=== PATIENT | female | born 1970 | race African-American/Black ===

== ENCOUNTER 2020-01-17 11:11 | Day surgery (SDC) | payer MEDICAID ==
[~2020-01-17] VITALS: Ht 172.7 cm; Wt 130.1 kg
[~2020-01-17 11:11] MED LIST: DIAZ10TA4 PO; HYDR-4353 PO; METO50TA17 PO
[2020-01-17] MEDS ORDERED: normal saline 1000ml 1,000 ML IV SCH (11:25)
[2020-01-17 11:33] VITALS: BP 160/88
[2020-01-17] MEDS ORDERED: GABA600T13 PO (11:47)
[2020-01-17] MEDS ORDERED: ANAS1TAB10 PO (11:47)
[2020-01-17] MEDS ORDERED: FLUO10CA28 PO (11:47)
[2020-01-17] MEDS ORDERED: OXYC-150 PO (11:47)
[2020-01-17] MEDS ORDERED: DULO60CA45 PO (11:47)
[2020-01-17] MEDS ORDERED: LIDOcaine 1%/PF 5ML 10 MG/ML VIAL ONE (12:27)
[2020-01-17 13:00] VITALS: BP 172/91
== END 2020-01-17 13:15 | disposition home or self-care (01) ==
LOC: SSTAY O 11:11
PROVIDERS: ATTEND Radiology Diagnostic Radiology
DX: Z45.2 Encounter for adjustment and management of vascular access device (principal); Z85.3 Personal history of malignant neoplasm of breast; Z88.8 Allergy status to other drugs, medicaments and biological substances; Z88.2 Allergy status to sulfonamides; Z79.899 Other long term (current) drug therapy; Z83.3 Family history of diabetes mellitus; Z80.8 Family history of malignant neoplasm of other organs or systems
CPT/HCPCS: 36590

== ENCOUNTER 2020-08-13 05:59 | Day surgery (SDC) | payer MEDICAID ==
[2020-08-03 16:01] LABS: BASOPHILS # (AUTO) 0.1 X10'3 (0-0.2); BASOPHILS % (AUTO) 1.1 % (0-1); EOSINOPHILS # (AUTO) 0.1 X10'3 (0-0.9); EOSINOPHILS % (AUTO) 0.5 % (0-6); LYMPHOCYTES # (AUTO) 4.2 X10'3 (1.1-4.8); LYMPHOCYTES % (AUTO) 34.8 % (21-51); MEAN CORPUSCULAR HEMOGLOBIN 30.3 PG (27.0-31.0); MEAN CORPUSCULAR HGB CONC 33.7 g/dL (33.0-36.5); MEAN PLATELET VOLUME 8.2 FL (7.4-10.4); MONOCYTES # (AUTO) 0.8 X10'3 (0-0.9); MONOCYTES % (AUTO) 6.6 % (2-12); NEUTROPHILS # (AUTO) 6.9 X10'3 (1.8-7.7); PRE OP HEMATOCRIT 39.8 % (35.0-45.0); PRE OP HEMOGLOBIN 13.4 g/dL (12.0-16.0); PRE OP PLATELET COUNT 334 X10'3 (140-440); RED BLOOD COUNT 4.42 X10'6 (4.20-5.60); RED CELL DISTRIBUTION WIDTH 13.7 % (11.5-14.5)
[2020-08-03 16:12] LABS: ALBUMIN 3.6 G/DL (3.4-5.0); ALBUMIN/GLOBULIN RATIO 0.7 (1.1-1.5); ALKALINE PHOSPHATASE 100 IU/L (46-116); BLOOD UREA NITROGEN 21 MG/DL (7-18); BUN/CREATININE RATIO 14.7 (6.6-38.0); CALCIUM 9.6 MG/DL (8.5-10.1); CHLORIDE 98 MMOL/L (99-107); CREATININE 1.43 MG/DL (0.40-0.90); PRE OP ALT 60 U/L (30-65); PRE OP ANION GAP 10 (8-16); PRE OP AST 46 U/L (10-37); PRE OP BILIRUB, TOTAL 0.4 MG/DL (0.0-1.0); PRE OP GLUCOSE 112 MG/DL (70-104); PRE OP SODIUM 138 MMOL/L (135-145); TOTAL PROTEIN 8.6 G/DL (6.4-8.2); eGFR 47 ML/MIN
[2020-08-03 16:13] LABS: PRE OP POTASSIUM 2.7 MMOL/L (3.4-5.1)
[2020-08-13] VITALS (9 sets, daily range): BP systolic 139–201; BP diastolic 73–111
[~2020-08-13] VITALS: Ht 172.7 cm; Wt 128.0 kg
[~2020-08-13 05:59] MED LIST changes: +ANAS5POW2 PO; +ATOR10TA PO; -DIAZ10TA4 PO; +DOCUMENT DATE & TIME OF BETA-BLOCKER PO ONE; +DULO60CA45 PO; +GABA600T13 PO; -HYDR-4353 PO; +HYDR25TA4 PO; +OXYC-150 PO; +PREG75CA75 PO; +ceFAZolin inj. 3,000 MG in normal saline 100ml IV soln 100 ML IV ONE; +famotidine 20mg tablet PO ONE; +ringers solution, lacted 1,000 ML IV SCH
[2020-08-13] MEDS ORDERED: BUPIVAcaine/PF 2.5mg/ml (0.25%) 10ml vial ONE (06:43)
[2020-08-13] MEDS ORDERED: LIDOcaine 0.5% (5mg/ml) 50ml vial ONE (07:30)
[2020-08-13] MEDS ORDERED: fentaNYL/PF 50MCG/1 ML 2ML syringe ONE ×2 (07:33→07:44)
[2020-08-13] MEDS ORDERED: propofol 10mg/ml 20ml vial IV ONE (07:34)
[2020-08-13] MEDS ORDERED: midazolam 2 mg/2 ml injection ONE (07:34)
--- NOTE | 2020-08-13 08:10 | NUR ---
Received from OR via [facility], accompanied by Anesthesiologist CARLIE and report given by Anesthesiolgist, PT ARRIVED AWAKE AND ALERT, NO PAIN NOTED, ON ROOM AIR-100%, LEFT WRIST ELEVATED AND WRAPPED, CDI, FINGERS EXPOSED, GOOD CAP REFILL, PIV TO RIGHT FOOT-WITH LR RUNNING, ALL VS WNL EXCEPT BP NOTED TO BE ELEVATED, ORDER GIVEN FROM MD FOR 5MG HYDRALAZINE IV. WILL ADMINISTER.
[2020-08-13] MEDS ORDERED: hydrALAZINE 20mg/ml inj. IV ONE (08:15)
--- NOTE | 2020-08-13 08:52 | NUR ---
CALLED DR. SEXTON REGARDING DECREASING BP 166/93 AFTER DOSE OF HYDRALAZINE, DR VARGAS TO SEND PT HOME AND TAKE REGULAR HOME BP MEDS
--- NOTE | 2020-08-13 09:30 | NUR ---
PT DISCHARGED TO VEHICLE BY W/C WITHOUT INCIDENT, PIV D/CD, ALL BELONGINGS WITH PT, VALG CDI, PT VERBALIZES UNDERSTANDING OF HOME CARE DID DAUGHTER VIA PHONE, EDUCATED TO USE PAIN MEDS FROM , AND TO START UP HOME MEDS AGAIN TODAY WELL, REMINDED TO USES CPAP WHILE SLEEPING OVER THE NEXT 24 HOURS
== END 2020-08-13 09:30 | disposition home or self-care (01) ==
LOC: PAS 05:59
PROVIDERS: ATTEND Orthopaedic Surgery Hand Surgery
DX: G56.02 Carpal tunnel syndrome, left upper limb (principal); M65.312 Trigger thumb, left thumb; M65.322 Trigger finger, left index finger; Z20.828 Contact with and (suspected) exposure to other viral communicable diseases; G47.33 Obstructive sleep apnea (adult) (pediatric); I11.0 Hypertensive heart disease with heart failure; I50.9 Heart failure, unspecified; F32.9 Major depressive disorder, single episode, unspecified; F41.9 Anxiety disorder, unspecified; M19.90 Unspecified osteoarthritis, unspecified site; E66.9 Obesity, unspecified; Z68.41 Body mass index [BMI] 40.0-44.9, adult; Z86.14 Personal history of Methicillin resistant Staphylococcus aureus infection; F12.90 Cannabis use, unspecified, uncomplicated; Z88.8 Allergy status to other drugs, medicaments and biological substances; Z85.3 Personal history of malignant neoplasm of breast; Z90.710 Acquired absence of both cervix and uterus; Z98.890 Other specified postprocedural states; Z79.899 Other long term (current) drug therapy; Z88.2 Allergy status to sulfonamides
CPT/HCPCS: 26055; 29848; 36415; 80053; 85025; 87635; J0360; J0690; J2001; J2250; J2704; J3010; J3490; A4215; A6449; A7000; J7120

== ENCOUNTER 2020-09-28 05:36 | Day surgery (SDC) | payer MEDICAID ==
[2020-09-21 12:37] LABS: BASOPHILS % (AUTO) 0.8 % (0-1); EOSINOPHILS # (AUTO) 0.1 X10'3 (0-0.9); EOSINOPHILS % (AUTO) 1.5 % (0-6); LYMPHOCYTES # (AUTO) 3.3 X10'3 (1.1-4.8); LYMPHOCYTES % (AUTO) 50.6 % (21-51); MEAN CORPUSCULAR HEMOGLOBIN 29.8 PG (27.0-31.0); MEAN CORPUSCULAR VOLUME 90.4 FL (78-98); MEAN PLATELET VOLUME 6.9 FL (7.4-10.4); MONOCYTES # (AUTO) 0.6 X10'3 (0-0.9); MONOCYTES % (AUTO) 9.3 % (2-12); NEUTROPHILS # (AUTO) 2.5 X10'3 (1.8-7.7); NEUTROPHILS % (AUTO) 37.8 % (42-75); PRE OP HEMATOCRIT 38.5 % (35.0-45.0); PRE OP HEMOGLOBIN 12.7 g/dL (12.0-16.0); PRE OP PLATELET COUNT 315 X10'3 (140-440); RED BLOOD COUNT 4.26 X10'6 (4.20-5.60); RED CELL DISTRIBUTION WIDTH 14.6 % (11.5-14.5)
[2020-09-21 12:50] LABS: ALBUMIN 3.5 G/DL (3.4-5.0); ALBUMIN/GLOBULIN RATIO 0.9 (1.1-1.5); ALKALINE PHOSPHATASE 88 IU/L (46-116); BLOOD UREA NITROGEN 16 MG/DL (7-18); BUN/CREATININE RATIO 15.4 (6.6-38.0); CALCIUM 8.8 MG/DL (8.5-10.1); CHLORIDE 106 MMOL/L (99-107); CREATININE 1.04 MG/DL (0.40-0.90); PRE OP ALT 27 U/L (30-65); PRE OP ANION GAP 6 (8-16); PRE OP AST 21 U/L (10-37); PRE OP BILIRUB, TOTAL 0.2 MG/DL (0.0-1.0); PRE OP GLUCOSE 122 MG/DL (70-104); PRE OP SODIUM 142 MMOL/L (135-145); TOTAL CARBON DIOXIDE 29.8 MMOL/L (24-32); TOTAL PROTEIN 7.5 G/DL (6.4-8.2); eGFR 68 ML/MIN
[2020-09-21 12:55] LABS: PRE OP POTASSIUM 3.3 MMOL/L (3.4-5.1)
[~2020-09-28] VITALS: Ht 172.7 cm; Wt 125.6 kg
[2020-09-28] VITALS (12 sets, daily range): BP systolic 124–164; BP diastolic 73–95
[2020-09-28] MEDS ORDERED: BUPIVAcaine/PF 2.5 mg/ml (0.25%) 30ml vial ONE (06:41)
[2020-09-28] MEDS ORDERED: LIDOcaine 0.5% (5mg/ml) 50ml vial ONE (08:12)
[2020-09-28] MEDS ORDERED: midazolam 2 mg/2 ml injection ONE (08:15)
[2020-09-28] MEDS ORDERED: fentaNYL/PF 50MCG/1 ML 2ML syringe ONE ×2 (08:16→08:55)
--- NOTE | 2020-09-28 09:30 | NUR ---
Received from OR via [facility], accompanied by Anesthesiologist DR SEXTON and report given by Anesthesiologist. PT DROWSY, NO S/S OF DISTRESS/DISCOMFORT, RIGHT HAND W/BIAS DRSG COVERING INCISION/DRSG, FINGERS WD, LEAD CARGO MOVER 1-2 SECONDS. Addendum: 09/28/20 at 0957 by Janna Marinelli RN Amended: Links added.
[2020-09-28] MEDS ORDERED: BUPIVAcaine/PF 2.5 mg/ml (0.25%) 30ml vial IJ ONE (10:04)
--- NOTE | 2020-09-28 11:20 | NUR ---
PT AWAKE AND ABLE TO AMBULATE SAFELY, TOLERATES FLUIDS. DC INSTRUCTIONS GIVEN AND GONE OVER W/PT WHO VERBALIZED UNDERSTANDING, PT D/CD TO HOME VIA W/C TO PRIVATE VEHICLE W/O INCIDENT. Addendum: 09/28/20 at 1138 by Janna Marinelli RN Amended: Links added.
== END 2020-09-28 11:20 | disposition home or self-care (01) ==
LOC: PAS 05:36
PROVIDERS: ATTEND Orthopaedic Surgery Hand Surgery
DX: G56.01 Carpal tunnel syndrome, right upper limb (principal); Z20.822 Contact with and (suspected) exposure to COVID-19; G47.33 Obstructive sleep apnea (adult) (pediatric); I11.0 Hypertensive heart disease with heart failure; I50.9 Heart failure, unspecified; M19.90 Unspecified osteoarthritis, unspecified site; F32.9 Major depressive disorder, single episode, unspecified; E66.9 Obesity, unspecified; Z68.41 Body mass index [BMI] 40.0-44.9, adult; Z79.899 Other long term (current) drug therapy; Z90.710 Acquired absence of both cervix and uterus; Z98.890 Other specified postprocedural states; Z85.3 Personal history of malignant neoplasm of breast; Z88.8 Allergy status to other drugs, medicaments and biological substances; Z86.14 Personal history of Methicillin resistant Staphylococcus aureus infection; Z88.2 Allergy status to sulfonamides
CPT/HCPCS: 29848; 36415; 80053; 82948; 85025; 87635; 93005; J0690; J2001; J2250; J3010; J3490; A4215; J7120